=== PATIENT | female | born 1995 | race Caucasian/White ===

== ENCOUNTER 2018-04-13 22:23 | Emergency (ER) | payer BC ==
[~2018-04-13] VITALS: Ht 162.6 cm; Wt 58.0 kg
[2018-04-13 23:00] LABS: URINE HCG POSITIVE (NEG)
[2018-04-13 23:19] LABS: CLARITY,URINE CLEAR (Clear); COLOR,URINE YELLOW (Yellow); GLUCOSE, URINE NEGATIVE (Neg); KETONES,URINE NEGATIVE (Neg); LEUKOCYTE ESTERASE ,URINE NEGATIVE (Neg); NITRITES, URINE NEGATIVE (Neg); OCCULT BLOOD,URINE LARGE (Neg); PROTEIN,URINE NEGATIVE (Neg); UROBILINOGEN,URINE 0.2 E.U/dL (0.2-1.0)
[2018-04-13 23:23] LABS: UA COLLECTION TYPE CLN CATCH MIDSTREAM
[2018-04-13 23:49] LABS: SQUAMOUS EPITHELIAL CELL,UR FEW /LPF (FEW)
[2018-04-13 23:50] LABS: BACTERIA,URINE FEW /HPF (Neg); WBC,URINE NONE SEEN /HPF (0-4)
[2018-04-14 00:23] LABS: BASOPHILS % (AUTO) 0.4 % (0-1); EOSINOPHILS # (AUTO) 0.2 X10'3 (0-0.9); EOSINOPHILS % (AUTO) 1.7 % (0-6); HEMATOCRIT 39.3 % (35.0-45.0); HEMOGLOBIN 13.6 g/dl (12.0-16.0); LYMPHOCYTES # (AUTO) 3.7 X10'3 (1.1-4.8); LYMPHOCYTES % (AUTO) 32.5 % (21-51); MEAN CORPUSCULAR HEMOGLOBIN 31.8 PG (27.0-31.0); MEAN CORPUSCULAR HGB CONC 34.7 % (33.0-36.5); MEAN CORPUSCULAR VOLUME 91.7 FL (78-98); MEAN PLATELET VOLUME 8.7 FL (7.4-10.4); MONOCYTES # (AUTO) 0.7 X10'3 (0-0.9); MONOCYTES % (AUTO) 6.1 % (2-12); NEUTROPHILS # (AUTO) 6.7 X10'3 (1.8-7.7); NEUTROPHILS % (AUTO) 59.3 % (42-75); PLATELET COUNT 303 X10'3 (140-440); RED BLOOD COUNT 4.28 X10'6 (4.20-5.60); RED CELL DISTRIBUTION WIDTH 13.2 % (11.5-14.5); WHITE BLOOD COUNT 11.3 X10'3 (4.5-11.0)
[2018-04-14 00:43] LABS: ALBUMIN 4.2 G/DL (3.4-5.0); ANION GAP 9 (8-16); BETA HCG,QUANTITATIVE 320 mIU/ml; BLOOD UREA NITROGEN 15 MG/DL (7-18); BUN/CREATININE RATIO 18.1 (6.6-38.0); CALCIUM 9.3 MG/DL (8.5-10.1); CHLORIDE 104 MMOL/L (99-107); CREATININE 0.83 MG/DL (0.40-0.90); GLUCOSE 98 MG/DL (70-104); POTASSIUM 3.9 MMOL/L (3.5-5.1); SODIUM 140 MMOL/L (135-145); TOTAL CARBON DIOXIDE 27.3 MMOL/L (24-32); eGFR 84 ML/MIN
[2018-04-14] MEDS ORDERED: PREN1TAB79 PO (00:57)
[2018-04-14 01:37] VITALS: BP 110/73
== END 2018-04-14 01:39 | disposition home or self-care (01) ==
LOC: ER 22:23
DX: O20.0 Threatened abortion (principal); Z79.899 Other long term (current) drug therapy
CPT/HCPCS: 36415; 76801; 76830; 80048; 81001; 81025; 84702; 85025; 86885; 86900; 86901; 99285

== ENCOUNTER 2021-12-24 07:54 | Day surgery (SDC) | payer MEDICAID ==
[~2021-12-24] VITALS: Ht 162.6 cm; Wt 68.2 kg
[~2021-12-24 07:54] MED LIST: PREN1TAB79 PO
[2021-12-24 08:11] VITALS: BP 132/77
[2021-12-24] MEDS ORDERED: NO HOME MEDS (08:17)
[2021-12-24] MEDS ORDERED: fentaNYL/PF 50MCG/1 ML 2ML syringe ONE (08:27)
[2021-12-24] MEDS ORDERED: MIDAZolam 1 MG/ML 5ML VIAL ONE (08:27)
[2021-12-24 09:42] VITALS: BP 99/65
[2021-12-24 09:52] VITALS: BP 99/62
[2021-12-24 10:02] VITALS: BP 94/56
[2021-12-24 10:12] VITALS: BP 103/63
== END 2021-12-24 10:15 | disposition home or self-care (01) ==
LOC: GI LAB 07:54
PROVIDERS: ATTEND Internal Medicine Gastroenterology
DX: R19.7 Diarrhea, unspecified (principal); K21.9 Gastro-esophageal reflux disease without esophagitis; K64.8 Other hemorrhoids; K64.4 Residual hemorrhoidal skin tags
CPT/HCPCS: 45380; 99152; J2250; J3010; J7040; Z7512; A4620